=== PATIENT | male | born 1975 ===

== ENCOUNTER 2018-01-19 00:55 | Emergency (ER) | payer OTHER ==
[~2018-01-19] VITALS: Ht 167.6 cm; Wt 61.5 kg
[2018-01-19 00:59] VITALS: TEMP 37; Ht 167.6 cm; Wt 61.5 kg
[2018-01-19] MEDS ORDERED: SODIUM CHLORIDE 0.9% 1000ML 1,000 ML IV STA (01:11)
[2018-01-19] MEDS ORDERED: OPTIRAY 320 IV PRN (01:15)
[2018-01-19 01:54] LABS: BASO % 0.1 %; BASO ABS # 0.01 K/uL (0-0.2); EOS % 3.2 %; HEMATOCRIT 43.3 % (42-52); HEMOGLOBIN 14.8 g/dL (14.0-18.0); IG# 0.04 K/uL (0.00-0.02); LYMPH % 19.2 %; MEAN CELL VOLUME 90.4 fL (80-100); MEAN CORPUSCULAR HEMOGLOBIN 30.9 pg (25-34); MEAN CORPUSCULAR HGB CONC 34.2 g/dl (32-36); MEAN PLATELET VOLUME 9.5 fL (7.4-10.4); MONO % 4.7 %; MONO ABS # 0.59 K/uL (0.11-0.59); NEUT % 72.5 %; NEUT ABS # 9.07 K/uL (1.4-6.5); PLATELET COUNT 308 K/uL (130-400); RED CELL DISTRIBUTION WIDTH CV 13.3 % (11.5-14.5); RED CELL DISTRIBUTION WIDTH SD 43.7 fL (36.4-46.3); WHITE BLOOD COUNT 12.51 K/uL (4.8-10.8)
[2018-01-19 02:03] LABS: ISTAT CREATININE 0.9 mg/dl (0.6-1.3); ISTAT IONIZED CALCIUM 1.12 mmol/l (1.12-1.32); ISTAT POTASSIUM 3.5 mEq/L (3.3-5.0)
[2018-01-19 02:19] LABS: ALBUMIN 3.8 gm/dl (3.4-5.0); CALCIUM 8.6 mg/dl (8.5-10.1); CREATININE 0.97 mg/dl (0.60-1.40); POTASSIUM 3.4 mmol/L (3.5-5.1); TOTAL PROTEIN 7.1 gm/dl (6.4-8.2)
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
[2018-01-19 03:15] VITALS: BP 135/78; PULSE 80; O2SAT 98
[2018-01-19] MEDS ORDERED: OXYCODONE IR HOME PACK PO ONE (03:15)
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
--- NOTE | 2018-01-19 07:48 | DIAGNOSTIC IMAGING REPORT ---
ABD/PELVIS IV CONTRAST ONLY CLINICAL HISTORY: 43 years-old Male presenting with fall, skateboarding, left lower rib/upper abd pain. TECHNIQUE: Multidetector CT of the abdomen and pelvis was performed after the administration of intravenous contrast. IV contrast: 91 mL of Optiray 320. A dose lowering technique was used consistent with the principles of ALARA (as low as reasonably achievable). COMPARISON: None. CT DOSE (mGy.cm): The estimated cumulative dose is 480.28. FINDINGS: Tube Former Operator topogram: Unremarkable. Lung bases: Solid triangular subpleural 4 mm nodule in the lateral basal right lower lobe (series 7 image 52). Normal heart size. No pericardial or pleural effusion. Liver: Normal morphology. No liver lesion. Patent hepatic vasculature. Biliary: No intrahepatic or extrahepatic biliary ductal dilatation. Gallbladder decompressed. Gallstones may be present (series 7 image 118). Pancreas: Pancreas divisum suspected. Pancreas otherwise normal. Spleen: Normal. Adrenal glands: Normal. Kidneys and ureters: Few small hypodensities in the kidneys likely simple cysts. No nephrolithiasis. No hydronephrosis. Mid to distal ureters poorly visualized due to the paucity of intra-abdominal fat. Bladder: Circumferential bladder wall thickening. Pelvic organs: Prostate enlargement likely secondary to benign prostatic hyperplasia. Bowel: Dilation of the bowel limited bilateral contrast and intra-abdominal fat. Moderate stool burden in the right and transverse colon. The appendix is normal. No bowel obstruction. Peritoneal cavity: No free fluid or intraperitoneal gas. Lymph nodes: No enlarged lymph nodes in the abdomen or pelvis. Vasculature: Aorta and IVC patent and normal in caliber. Abdominal wall: Normal. Musculoskeletal: Nondisplaced fracture of the lateral left 10th rib near the costochondral junction. No additional rib fracture. No displaced fracture. IMPRESSION: 1. Nondisplaced lateral left 10th rib fracture of the costochondral junction. No additional fracture. No evidence of acute intra-abdominal injury. 2. Suspected cholelithiasis. 3. Solid 4 mm right lower lobe nodule. Follow-up per Abhinav Society 2017 recommendations below. Please refer to below summary of Fleischner Society 2017 recommendations for follow-up of incidental CT nodules (H Syd et al. Guidelines for management of incidental pulmonary nodules detected on CT images: From the Fleischner Society 2017. Radiology 2017; 284: 228-243.) SOLID NODULES Single nodule; size < 6 mm * Low risk patients: No routine follow-up * High risk patients: Optional CT at 12 months Single nodule; size 6-8 mm * Low risk patients: CT at 6-12 months, then consider CT at 18-24 months * High risk patients: CT at 6-12 months, then at 18-24 months Single nodule; size > 8 mm * Either low or high risk patients: Considered CT at 3 months, PET/CT, or tissue sampling Multiple nodules; size < 6 mm * Low risk patients: No routine follow up * High risk patients: Optional CT at 12 months Multiple nodules; size 6-8 mm * Low risk patients: CT at 3-6 months, then consider CT at 18-24 months * High risk patients: CT at 3-6 months, then at 18-24 months Multiple nodules; size > 8 mm * Low risk patients: CT at 3-6 months, then consider at 18-24 months * High risk patients: CT at 3-6 months, then at 18-24 months SUBSOLID NODULES Single ground-glass nodule * Nodule size < 6 mm: No routine follow-up * Nodule size > or = 6 mm: CT at 6-12 months to confirm persistence, then CT every 2 years until 5 years Single part-solid nodule * Nodule size < 6 mm: No routine follow-up * Nodules size > or = 6 mm: CT at 3-6 months to confirm persistence. If unchanged and solid component remains < 6 mm, annual CT should be performed for 5 years Multiple nodules * Nodule size < 6 mm: CT at 3-6 months. If stable, consider CT at 2 and 4 years. * Nodules size > or = 6 mm: CT at 3-6 months. Subsequent management based on the most suspicious nodule(s) NOTE: 1) These guidelines apply to incidental nodules. These guidelines do NOT apply to patients younger than 35 years, immunocompromised patients, or patients with cancer. 2) Risk categories: * Low risk patients: Minimal or absent history of smoking and/or other known risk factors * High risk patients: History of smoking, exposure to other carcinogens, emphysema, fibrosis, upper lobe location, family history of lung cancer, etc. 3) If a nodule up to 8 mm is partly solid or is ground glass, further follow-up is required after 24 months to exclude possible slow growing adenocarcinoma. Electronically signed by: Price Harris M.D. 01/19/2018 7:47 AM Dictated Date/Time: 01/19/2018 7:40 AM
== END 2018-01-19 03:29 | disposition home or self-care (01) ==
LOC: C.EDB 00:56 → C.EDA 03:29
DX: S22.32XA Fracture of one rib, left side, initial encounter for closed fracture (principal); V00.131A Fall from skateboard, initial encounter; Y93.51 Activity, roller skating (inline) and skateboarding; Y92.488 Other paved roadways as the place of occurrence of the external cause; F17.200 Nicotine dependence, unspecified, uncomplicated

== ENCOUNTER 2018-01-27 10:05 | Emergency (ER) | payer OTHER ==
[~2018-01-27] VITALS: Ht 167.6 cm; Wt 61.2 kg
[2018-01-27 10:10] VITALS: TEMP 36.9; Ht 167.6 cm; Wt 61.2 kg
[2018-01-27 11:01] VITALS: BP 139/84; PULSE 73; O2SAT 96
--- NOTE | 2018-01-27 11:03 | EMERGENCY ROOM VISIT NOTE ---
ED Visit Note First contact with patient: 10:16 CHIEF COMPLAINT: Persistent left rib pain HISTORY OF PRESENT ILLNESS: This 43-year-old male presents to ER for recheck of his left rib fracture. 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 The patient states that he still gets increased pain when he tries to lift something or sneezes or coughs. He has been taking ibuprofen as directed. The patient does not have a family doctor and would like another work excuse. REVIEW OF SYSTEMS: 6 system review was performed and was negative unless stated otherwise in history of present illness. PMH: The patient is healthy; no change from prior ER visit. SOCIAL HISTORY: Patient lives with his parents PHYSICAL EXAM: Vital Signs: Were reviewed reviewed Nurse's notes. GENERAL: 43- year-old white male appears in no acute distress. MENTAL Status: Alert and oriented 3. LUNGS: Clear to auscultation and breath sounds equal, no wheezes, rales, or rhonchi. HEART: Heart sounds are regular without murmurs, ectopy, gallop, or rub. CHEST WALL: No gross bony deformity noted. No erythema or edema noted. The patient is nontender to palpation. EMERGENCY DEPARTMENT COURSE: The patient was evaluated. We discussed options of being off for work for a longer period of time but that he would not be getting paid and he is okay financially. DIAGNOSIS: Left sixth rib fracture TREATMENT and DISCHARGE INSTRUCTIONS: Continue ibuprofen as previously directed. Avoid any strenuous exercise with your upper body. Off work for additional 7 days. Problem List Medical Problems: (1) TOBACCO USE DISORDER Status: Chronic Current/Historical Medications No Active Prescriptions or Reported Meds Allergies Coded Allergies: No Known Allergies (Unverified , 01/19/18) Vital Signs Date Time Temp Pulse Resp B/P (MAP) Pulse Ox O2 Delivery O2 Flow Rate FiO2 01/27/18 10:10 36.9 73 18 144/86 99 Room Air Departure Information Impression Primary Impression: Left rib fracture Dispostion Home / Self-Care Condition GOOD Prescriptions No Active Prescriptions or Reported Meds Forms WORK / SCHOOL INSTRUCTIONS, HOME CARE DOCUMENTATION FORM, Days off work : 7 IMPORTANT VISIT INFORMATION Patient Instructions [employer] Additional Instructions Continue ibuprofen as needed for pain. Refrain from any heavy lifting for the next 7 days. Off work for an additional week.
== END 2018-01-27 11:02 | disposition home or self-care (01) ==
LOC: C.EDB 10:07
DX: S22.32XA Fracture of one rib, left side, initial encounter for closed fracture (principal); X58.XXXA Exposure to other specified factors, initial encounter